=== PATIENT | female | born 2000 | race Caucasian/White ===

== ENCOUNTER 2021-10-19 17:05 | Emergency (ER) | payer MEDICAID ==
[~2021-10-19] VITALS: Ht 154.9 cm; Wt 50.0 kg
[2021-10-19 17:26] VITALS: TEMP 100.4
[2021-10-19 18:20] VITALS: BP 125/77; PULSE 110
[2021-10-19] MEDS ORDERED: ZOFRAN ODT4 MG PO (22:25)
== END 2021-10-19 18:20 | disposition home or self-care (01) ==
LOC: COL.ER 17:05
DX: U07.1 COVID-19 (principal); Z87.891 Personal history of nicotine dependence; Z28.310 Unvaccinated for COVID-19
CPT/HCPCS: J2405

== ENCOUNTER 2023-01-02 15:31 | Emergency (ER) | payer SELFPAY ==
[~2023-01-02] VITALS: Ht 154.9 cm; Wt 50.0 kg
[~2023-01-02 15:31] MED LIST: ZOFRAN ODT4 MG PO
[2023-01-02 15:36] VITALS: TEMP 98
[2023-01-02 15:50] LABS: BASO % 0.4 % (0.0-2.0); EOS # 0.1 K/mm3 (0.0-0.7); EOS % 0.8 % (0.0-4.0); GRAN # 7.1 K/mm3 (1.4-6.5); GRAN % 72.4 % (42.2-75.2); HEMOGLOBIN 14.6 g/dl (12.5-16.0); LYMPH # 2.2 K/mm3 (1.2-3.4); LYMPH % 22.2 % (20.0-51.0); MEAN CELL VOLUME 87 fl (80.0-100.0); MEAN CORPUSCULAR HEMOGLOBIN 30 pg (27-31); MEAN CORPUSCULAR HGB CONC 35 g/dl (33.0-37.0); MEAN PLATELET VOLUME 8.5 fl (7.4-10.4); MONO # 0.4 K/mm3 (0.1-0.6); PLATELET COUNT 348 K/mm3 (130-400); RED BLOOD COUNT 4.85 M/mm3 (4.10-5.30); REDCELL DISTRIBUTION WIDTH-CV 11.5 % (11.5-14.5)
[2023-01-02 16:08] LABS: ALANINE AMINOTRANSFERASE 15 U/L (0-55); ALBUMIN 4.8 gm/dL (3.5-5.0); ALKALINE PHOSPHATASE 52 U/L (40-150); ANION GAP 15 mmol/L (7-16); AST,SGOT 20 U/L (5-34); BILIRUBIN,TOTAL 0.5 mg/dL (0.2-1.2); BLOOD UREA NITROGEN 12 mg/dL (7-19); CALCIUM 9.8 mg/dL (8.4-10.2); CARBON DIOXIDE 22 mmol/L (22-29); CHLORIDE 106 mmol/L (98-107); CREATININE, serum 0.83 mg/dL (0.57-1.11); GLUCOSE 108 mg/dL (70-99); POTASSIUM 3.5 mmol/L (3.5-4.5); SODIUM 143 mmol/L (136-145); TOTAL PROTEIN 8.3 gm/dL (6.2-8.1)
[2023-01-02 16:17] LABS: TROPONIN-I < 0.010 ng/mL (0.00-0.033)
[2023-01-02 17:20] VITALS: BP 114/81; PULSE 73
== END 2023-01-02 17:25 | disposition home or self-care (01) ==
LOC: COL.ER 15:31
PROVIDERS: Personal Emergency Response Attendant
DX: R07.89 Other chest pain (principal)

== ENCOUNTER 2023-11-21 17:43 | Emergency (ER) | payer SELFPAY ==
[~2023-11-21] VITALS: Ht 154.9 cm; Wt 50.0 kg
[2023-11-21 17:49] VITALS: TEMP 98.3
[2023-11-21 19:55] VITALS: BP 128/74; PULSE 74
== END 2023-11-21 19:13 | disposition home or self-care (01) ==
LOC: COL.ER 17:43
DX: S82.832A Other fracture of upper and lower end of left fibula, initial encounter for closed fracture (principal); X50.1XXA Overexertion from prolonged static or awkward postures, initial encounter; Y93.73 Activity, racquet and hand sports; Y99.8 Other external cause status
CPT/HCPCS: 31867; L4386